=== PATIENT | female | born 1975 ===

== ENCOUNTER 2023-11-26 19:49 | Outpatient (REF) | payer SELFPAY ==
[2023-11-26 21:28] LABS: Abs Immature Grans 0.01 10^3/uL (0.0-0.06); Absolute Basophil Count 0.02 10^3/uL (0.0-0.2); Absolute Eosinophil Count 0.11 10^3/uL (0.0-0.7); Absolute Lymphocyte Count 1.89 10^3/uL (1.2-3.4); Absolute Neutrophil Count 4.73 10^3/uL (1.2-6.7); Basophils % 0.3 %; Eosinophils % 1.6 %; HCT 39.1 % (36.0-46.0); HGB 13.9 g/dL (11.2-15.7); Immature Grans % 0.1 %; Lymphocytes % 26.8 %; MCH 33.7 pg (27.0-33.0); MCHC 35.5 % (32.0-36.0); MCV 95 fL (80-95); MPV 11.5 fL (8.0-11.0); Monocytes % 4.2 %; Platelet Count 212 10^3/uL (130-400); RBC 4.13 10^6/uL (3.93-5.22); RDW 12.6 % (11.7-14.6); RDW-SD 43.8 fL; WBC 7.06 10^3/uL (4.4-10.8)
[2023-11-26 21:44] LABS: FREE T4 0.94 ng/dL (0.76-1.46); TSH 1.17 uIU/Ml (0.36-3.74)
[2023-11-27 17:33] LABS: T3,Free 3.2 pg/mL (2.8-5.3)
== END 2023-11-26 19:50 | disposition home or self-care (01) ==
LOC: LBN 19:49
PROVIDERS: Visit Provider Nurse Practitioner Family
DX: E03.9 Hypothyroidism, unspecified (principal); R53.83 Other fatigue
CPT/HCPCS: 84439; 84443; 84481; 85025